=== PATIENT | female | born 1945 | race Hispanic/Latino ===

== ENCOUNTER 2025-04-22 20:30 | Emergency (ER) | payer OTHER ==
[~2025-04-22] VITALS: Ht 154.9 cm; Wt 68.0 kg
[2025-04-22] MEDS: ORPHENADRINE 60MG/2ML IM ONE (21:15)
--- NOTE | 2025-04-22 21:16 | NUR ---
PATIENT TAKEN TO XRAY AT THIS TIME.
--- NOTE | 2025-04-22 21:30 | ERN ---
ED Note History of Present Illness Stated Complaint: LEG LEG PAIN, 2 WEEKS Chief Complaint: Lower Extremity Pain/Injury Time Seen by MD: 20:33 Time Seen by Midlevel: 20:33 Dictation: The patient is a 79-year-old female with a history of hypertension who presents to the emergency department with complaints of left thigh pain, left hip pain and low back pain onset two weeks ago after a accidental trip and fall. Patient reports she has seen her primary doctor and had some x-rays done and was told she had arthritis and prescribed gabapentin. Patient reports pain continues. Denies any paresthesia, denies any urinary or fecal incontinence. Allergies: Coded Allergies: No Known Drug Allergies (Verified Allergy, 01/30/12) Past Medical History Past Medical History: High Cholesterol, Hypertension Surgical History: None RN Note Reviewed/Agreed w/PFSH: Yes Review of System Dictation Constitutional: Negative for fever,chills, and weight loss Eyes: Negative for injury, pain,redness, and discharge ENT: Negative for injury,pain or swelling Cardiovascular: Negative for chest pain, palpitations, and edema Respiratory: Negative for shortness of breath, cough, and wheezing, Abdomen/GI: Negative for abdominal pain, nausea, vomiting, diarrhea, and constipation Back: Negative for injury and pain : Negative for injury, bleeding and discharge MS/Extremity: Positive for left hip pain, left upper leg pain Skin: Negative for rash, and discoloration Neuro: Negative for headache, weakness, numbness, tingling, and seizure Psych: Negative for suicide ideation, homicidal ideation, and hallucinations Initial Vital Sign VS Vital Signs Date Time Temp Pulse Resp B/P (MAP) Pulse Ox O2 Delivery O2 Flow Rate FiO2 04/22/25 20:31 98.2 71 18 151/61 96 Room Air 04/22/25 22:30 0 21 Physical Exam Dictation Vital Signs reviewed General Appearance: Alert, oriented x 3, no acute distress, well developed, nourished. Head and Face: non-traumatic. Eyes: PERRL, pink conjunctivas, eyelid no trauma, anterior chamber with arcus senilis. Ears: Pinnas intact and no signs of trauma or erythema ear canals clear and no discharge TM no erythema Nose: No discharge, no bleeding. Oropharynx: Mouth normal, tongue pink. pharynx clear,no erythema, tonsils no exudates, no abscesses noted, mucous membrane moist Neck: Supple, non-tender, no thyromegaly, no masses, no JVD, no bruits Breast:Deferred Chest:No tenderness, no crepitus, no paradoxical movement, no retractions Lungs:Clear, well-ventilated, symmetric, no rales, no wheezing, no rhonchi, no stridor, good breath sounds bilaterally Heart: Regular rate, regular rhythm, no murmur, no gallops Vascular: no peripheral edema, dorsalis pedis 3+ bilaterally Abdomen: Soft, positive bowel sounds, nondistended, no guarding, nontender, no rebound, no masses no hepatomegaly, no splenomegaly, no Garza's sign, no hernias. Rectal: Deferred Genital: Deferred Neurological: Normal speech, motor function intact, sensory function intact Musculoskeletal: Neck nontender, full range of motion, back nontender, full range of motion, Extremities: nontender, full range of motion , tenderness to sacral area, no open wounds, no deformities Skin: Color pink, dry, no turgor, no rash, no lacerations, no abrasions, no contusions. Lymphatic: Deferred Results (Laboratory/Radiology) Laboratory/Radiology REASON: fall, pain ORDERING PHYSICIAN: ROSE JULES PROGRESS CLERK PROCEDURE: SAC BOLIVAR 2V - SACRUM/COCCYX 2+VWS EXAM: CR Sacrum and Coccyx, 3 views. CLINICAL HISTORY: Fall. COMPARISON: None provided. FINDINGS: No acute fracture or aggressive appearing osseous lesion. Normal alignment. Mild osteopenia. 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 The soft tissues are unremarkable. IMPRESSION: No acute bony abnormality is evident. Mild osteopenia. Mild osteoarthritis. /[place] REASON: fall, pain ORDERING PHYSICIAN: ROSE JULES PROGRESS CLERK PROCEDURE: PELVIS - PELVIS 1-2VWS EXAM: CR Pelvis, 1 view. CLINICAL HISTORY: Fall. COMPARISON: None provided. FINDINGS: No acute fracture or aggressive appearing osseous lesion. Mild osteopenia. 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 Enthesopathy around the bilateral hips. The soft tissues are unremarkable. IMPRESSION: No acute bony abnormality is evident. Mild osteopenia and degenerative changes. /[place] Signed PATIENT: IRON VALDEZ MR#: [id number] : 1945 SEX: F AGE: 79 LOCATION: [facility] ORDER 48 STATUS: REG ER REPORT#: [id number] SERVICE 44 REASON: fall, pain ORDERING PHYSICIAN: ROSE JULES PROGRESS CLERK PROCEDURE: FEM LT 2 - FEMUR 2 VW LEFT EXAM: CR Left Femur, 4 views. CLINICAL HISTORY: Fall. COMPARISON: None provided. FINDINGS: No acute fracture or aggressive appearing osseous lesion. Mild osteopenia. Mild degenerative changes around the included left hip and left knee joints. Mild enthesopathy around the distal quadriceps tendon. Mild enthesopathy around the greater trochanter. IMPRESSION: No acute bony abnormality is evident. Mild osteopenia and degenerative changes. /[place] Labs Reviewed?: Yes ED Course ED Course Orders Procedure Category Date Status Time Femur 2 Vw Left RAD 04/22/25 Resulted 20:45 Sacrum/Coccyx 2+Vws RAD 04/22/25 Resulted 20:45 Orphenadrine Citrate PHA 04/22/25 Complete (Norflex) 21:00 Pelvis 1-2vws RAD 04/22/25 Resulted 20:45 Ketorolac PHA 04/22/25 Complete Tromethamine 30mg/Ml 21:00 Current Medications Medications (Trade) Dose Ordered Sig/Jesus Route PRN Reason Start Time Stop Time Status Last Admin Dose Admin Ketorolac Tromethamine (toRADol) 30 mg ONCE ONCE IM 04/22/25 21:00 04/22/25 21:01 DC 04/22/25 21:15 Orphenadrine Citrate (Norflex) 60 mg ONCE ONCE IM 04/22/25 21:00 04/22/25 21:01 DC 04/22/25 21:15 Vital Signs Date Time Temp Pulse Resp B/P (MAP) Pulse Ox O2 Delivery O2 Flow Rate FiO2 04/22/25 22:30 63 18 136/47 98 Room Air* 0 21 04/22/25 20:31 98.2 71 18 151/61 96 Room Air Medical Decision Making MDM The patient is a 79-year-old female with a history of hypertension who presents to the emergency department with complaints of left thigh pain, left hip pain and low back pain onset two weeks ago after a accidental trip and fall. Patient reports she has seen her primary doctor and had some x-rays done and was told she had arthritis and prescribed gabapentin. Patient reports pain continues. Denies any paresthesia, denies any urinary or fecal incontinence. X-ray showed no acute fractures. Patient reports feeling better after medication administration. On physical exam patient is in no acute distress, neurovascularly intact. Patient will be discharged to follow up with PCP. Differential diagnosis: Hip fracture, femur fracture, hip contusion, sciatic nerve pain, arthritis Need for hospitalization: Patient does not meet criteria for hospitalization. There are no social concerns with this patient. DX & DISP Disposition: Discharge Departure Impression: Primary Impression: Left hip pain Additional Impression: Low back strain Condition: Stable Scripts Cyclobenzaprine HCl (Cyclobenzaprine HCl) 5 Mg Tablet 1 TAB PO TIDP PRN for muscle spasms for 10 Days, #30 TAB 0 Refills Prov: ROSE JULES 04/22/25 Additional Instructions: Your x-rays did not show any fractures. Please follow up with your primary doctor in 1-2 days. Take your medications as prescribed. If anything worsens please return to ER. FOLLOW-UP WITH PRIMARY CARE PROVIDER IN 1 TO 2 DAYS. TAKE MEDICATIONS DIRECTED HERE IN THE EMERGENCY ROOM. OKAY TO CONTINUE HOME MEDICATIONS UNLESS OTHERWISE DISCUSSED DURING YOUR VISIT IN THE EMERGENCY ROOM TODAY. RETURN TO YOUR NEAREST EMERGENCY ROOM IF SYMPTOMS WORSEN OR IF THERE IS NO IMPROVEMENT. CALL 911 IF YOU NEED IMMEDIATE ASSISTANCE. TAKE TYLENOL [id number] NEEDED AND IF NO CONTRAINDICATIONS ARE PRESENT. INCREASE ORAL HYDRATION. A WOUND CULTURE OR URINE CULTURE WAS ORDERED HERE IN THE EMERGENCY ROOM DEPARTMENT PLEASE FOLLOW-UP WITH PRIMARY CARE PROVIDER AND ADVISE THEM TO GET REPEAT PORTS FROM OUR FACILITY. IF YOU HAD ANY LEATHA WRAP/SPLINTS THAT WERE APPLIED HERE, PLEASE DO NOT REMOVE THEM UNTIL YOU SEE YOUR PRIMARY CARE OR SPECIALTY. Referrals: NONE (PCP) Time of Disposition: 23:11 I have reviewed the case, and I agree with, Diagnosis and Plan ROSE JULES Apr 22, 2025 21:30
--- NOTE | 2025-04-22 23:00 | HMCIMG ---
EXAM: CR Sacrum and Coccyx, 3 views. CLINICAL HISTORY: Fall. COMPARISON: None provided. FINDINGS: No acute fracture or aggressive appearing osseous lesion. Normal alignment. Mild osteopenia. 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 The soft tissues are unremarkable. IMPRESSION: No acute bony abnormality is evident. Mild osteopenia. Mild osteoarthritis. /[place]
--- NOTE | 2025-04-22 23:03 | HMCIMG ---
EXAM: CR Pelvis, 1 view. CLINICAL HISTORY: Fall. COMPARISON: None provided. FINDINGS: No acute fracture or aggressive appearing osseous lesion. Mild osteopenia. 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 Enthesopathy around the bilateral hips. The soft tissues are unremarkable. IMPRESSION: No acute bony abnormality is evident. Mild osteopenia and degenerative changes. /[place]
--- NOTE | 2025-04-22 23:04 | HMCIMG ---
EXAM: CR Left Femur, 4 views. CLINICAL HISTORY: Fall. COMPARISON: None provided. FINDINGS: No acute fracture or aggressive appearing osseous lesion. Mild osteopenia. Mild degenerative changes around the included left hip and left knee joints. Mild enthesopathy around the distal quadriceps tendon. Mild enthesopathy around the greater trochanter. IMPRESSION: No acute bony abnormality is evident. Mild osteopenia and degenerative changes. /[place]
[2025-04-22] MEDS ORDERED: CYCL5TAB3 PO (23:12)
[2025-04-22 23:38] VITALS: BP 136/74; PULSE 78; RESP 18; TEMP 98.3; O2SAT 98
== END 2025-04-22 23:39 | disposition home or self-care (01) ==
LOC: EDH 20:30
DX: S39.012A Strain of muscle, fascia and tendon of lower back, initial encounter (principal); M25.552 Pain in left hip; E78.00 Pure hypercholesterolemia, unspecified; I10 Essential (primary) hypertension; W18.00XA Striking against unspecified object with subsequent fall, initial encounter; Y93.89 Activity, other specified; Y92.89 Other specified places as the place of occurrence of the external cause; Y99.8 Other external cause status
CPT/HCPCS: 99284; 73552; 72170; 72220; 96372 ×2; J1885; J2360